=== PATIENT | male | born 1965 | race Caucasian/White ===

== ENCOUNTER 2024-05-09 22:28 | Emergency (ER) | payer BC, OTHER ==
[2024-05-09 23:08] LABS: BASOPHILS ABSOLUTE AUTO 0.1 x10-3/uL (0.0-0.3); BASOPHILS PERCENT AUTO 0.6 % (0.3-3.8); EOSINOPHILS ABSOLUTE AUTO 0.1 x10-3/uL (0.0-0.6); EOSINOPHILS PERCENT AUTO 0.9 % (0.1-6.8); HEMATOCRIT 44.2 % (38.3-50.1); HEMOGLOBIN 15.3 g/dL (12.9-17.7); LYMPHOCYTES ABSOLUTE AUTO 1.1 x10-3/uL (0.5-4.5); LYMPHOCYTES PERCENT AUTO 14.5 % (15.8-45.3); MEAN CORPUSCULAR HEMOGLOBIN 30.6 pg (27.0-33.3); MEAN CORPUSCULAR HGB CONC 34.6 g/dL (28.7-35.3); MEAN CORPUSCULAR VOLUME 88.2 fL (80.8-98.7); MONOCYTES ABSOLUTE AUTO 0.4 x10-3/uL (0.0-1.2); MONOCYTES PERCENT AUTO 4.8 % (5.5-15.2); NEUTROPHILS ABSOLUTE AUTO 6.3 x10-3/uL (1.7-6.9); NEUTROPHILS PERCENT AUTO 79.2 % (40.3-71.8); PLATELET COUNT,PLT 198 x10(3)uL (117-477); RED CELL DISTRIBUTION WIDTH 13.6 % (12.4-15.0); WHITE BLOOD CELL COUNT,WBC 7.9 x10-3/uL (3.2-10.1)
[2024-05-09 23:17] LABS: BLOOD UREA NITROGEN,BUN 21 mg/dL (7-18); BUN/CREATININE RATIO 13.1 (9-20); CALCIUM 9.7 mg/dL (8.6-10.2); CARBON DIOXIDE,CO2 22 mmol/L (21-32); CHLORIDE,CL 105 mmol/L (100-110); CREATININE 1.6 mg/dL (0.70-1.30); ESTIMATED GFR 50 mL/min (>60); GLUCOSE RANDOM 182 mg/dL (80-116); POTASSIUM,K 3.6 mmol/L (3.5-5.3); SODIUM,NA 137 mmol/L (135-145)
[2024-05-09 23:29] LABS: ALANINE AMINOTRANSFERASE,ALT 32 U/L (12-36); ALBUMIN 3.6 g/dL (3.5-5.2); ALKALINE PHOSPHATASE 57 IU/L (56-112); ASPARTATE AMNIOTRANSFERASE,AST 25 IU/L (5-25); BILIRUBIN TOTAL 0.5 mg/dL (0.1-1.3); PROTEIN TOTAL,TP 7.1 g/dL (6.0-8.0)
[2024-05-10 00:28] LABS: BILIRUBIN,URINE NEGATIVE (NEGATIVE); GLUCOSE,URINE NORMAL (NORMAL); KETONES,URINE NEGATIVE (NEGATIVE); LEUKOCYTE ESTERASE,URINE SMALL (NEGATIVE); NITRITE,URINE NEGATIVE (NEGATIVE); OCCULT BLOOD,URINE MODERATE (NEGATIVE); PROTEIN,URINE NEGATIVE (NEGATIVE); UROBILINOGEN,URINE NORMAL (NEGATIVE)
[2024-05-10 00:30] LABS: APPEARANCE,URINE SLIGHTLY CLOUDY (CLEAR); COLOR,URINE YELLOW (YELLOW)
[2024-05-10 00:31] LABS: BACTERIA,URINE FEW (NS); RBC,URINE 0-5 (0-5); SQUAMOUS EPITHELIAL CELLS,UR OCCASIONAL (NS,R,O); WBC,URINE 0-5 (0-5)
[2024-05-10] MEDS: Sulfamethoxazole/Trimethoprim 800-160 MG Tab PO STA (00:43)
== END 2024-05-10 01:15 | disposition home or self-care (01) ==
LOC: FB.ED 22:28
DX: N39.0 Urinary tract infection, site not specified (principal)
CPT/HCPCS: 36415; 71045; 80053; 81001; 84484; 85025; 87086; 87088; 87186; 87428-QW; 93010; 99283; 99284; A9270-GY

== ENCOUNTER 2024-06-05 19:59 | Emergency (ER) | payer BC ==
[2024-06-05] MEDS: Ketorolac 30 MG/ML SDV IM ONE (20:38)
[2024-06-05] MEDS: Tamsulosin 0.4 MG Cap.ER PO ONE (20:39)
== END 2024-06-05 20:44 | disposition home or self-care (01) ==
LOC: FB.ED 19:59
DX: N39.0 Urinary tract infection, site not specified (principal); Z79.899 Other long term (current) drug therapy
CPT/HCPCS: 96372; 99283; A9270; J1885